=== PATIENT | female | born 1985 | race Caucasian/White ===

== ENCOUNTER 2024-11-25 23:27 | Observation (INO) | payer BC, SELFPAY ==
[2024-11-25 20:21] VITALS: BP 130/85
[2024-11-25 20:32] VITALS: BP 139/79
[2024-11-25] MEDS: NSS 1000 IV (21:00)
[2024-11-25] MEDS: DILAUDID 0.5 MG IV ×2 (21:00→23:51)
[2024-11-25 21:12] LABS: Hematocrit 31.9 % (37.0-47.0); Hemoglobin 11.5 g/dL (12.0-16.0); Mean Corp Hgb Conc. 36.1 g/dL (33.0-37.0); Mean Corpuscular Volume 94.1 fL (81.0-99.0); Nucleated Red Blood Cells % 0 %; Platelet Count 304 10^3/uL (130-400); Red Cell Dist. Width 13.1 % (11.5-14.5)
[2024-11-25 21:27] LABS: COVID-19 Antigen Negative (Negative)
--- NOTE | 2024-11-25 21:27 | ED.GENMED ---
History of Present Illness
General
Chief Complaint: Chest Pain
Source: patient
Exam Limitations: none
Time Seen by Provider: 11/25/24 20:27
History of Present Illness
History of Present Illness:
39-year-old female slight cough for 2 to 3 days. However in the last 20 hours patient has developed severe pleuritic left-sided chest pain. Mostly left lateral. Clearly worse with breathing. Also worse with lying down. Dry cough no sputum no
hemoptysis no fever.
Past History
Past History
ED Past Medical History: Other (Crohn's disease)
ED Past Surgical History: Appendectomy and Other (Bowel resections. [place] teeth)
Social History
Tobacco: Non-smoker
Alcohol: None
Drug: None
Living: with family
Review of Systems
Review of Systems
All Other Systems: Not applicable
Constitutional: Denies fever
ABD/GI: Denies abdominal pain
Phy Exam
Physical Exam
Physical Exam:
GENERAL: Alert and oriented. Nontoxic but appears moderately uncomfortable. Somewhat anxious
EYE: Orbits normal.
NECK: Supple, no significant adenopathy.
ENT: No drooling no stridor speech normal
CARDIAC: Tachycardic and regular no murmur
LUNGS: Clear breath sounds,normal
ABDOMEN: Soft, without focal tenderness or distention
NEUROLOGICAL: Alert and oriented , grossly non-focal
SKIN: Warm and dry, no rash or lesion, no discoloration, skin intact.
MUSCULOSKELETAL: No edema,no deformity.Good color
PSYCH: Normal and appropriate interaction. However anxious
Scores
Heart Score for Chest Pain Patients
STEMI patient?: No
History: Slightly or Non-Suspicious
ECG: Normal
Age: </= 45 years
Risk Factors: No Risk Factors
Troponin: </= Normal Limit
Heart Score for Chest Pain Patients: 0
Heart Score Risk: 2.5% MACE over next 6 weeks
Course
Orders/Labs/Results
Orders:
Orders
11/25/24 Dinner
Regular
11/25/24 20:19
Electrocardiogram (*1) Urgent
Reason for Study: Chest Pain
EKG- Treatment ONCE
11/25/24 20:33
IV Insert/Care/Rem.- Treatment PRN
0.9% Sodium Chloride 500 ml [Nss] 500 ml IV BOLUS
CXR Port [CR Chest Portable - 1 View] Urgent
Comment:
Reason For Exam: pleuritic left chest pain
Reason Study Needs to be Portable: Unable to Transport
11/25/24 20:34
Cardiac Monitoring- Treatment ONCE
11/25/24 20:40
0.9% Sodium Chloride 1000 ml [Nss] 1,000 ml IV BOLUS
HYDROmorphone [Dilaudid] 0.5 mg IV NOW STA
Test Result ONCE
11/25/24 20:42
CT Chest PE Study Urgent
Comment:
Reason For Exam: Left pleuritic chest pain
11/25/24 20:58
Basic Metabolic Panel Urgent
Beta Hcg Serum Qualitative Screen [HCG, Serum Qualitative Screen] Urgent
COVID-19 Antigen Urgent
Source: Nasal Swab
CRP [C-Reactive Protein] Urgent
Complete Blood Count/With Diff Urgent
ESR [Erythrocyte Sed Rate] Urgent
Troponin I Urgent
11/25/24 23:06
Azithromycin 500 mg/250 ml [Zithromax Infusion] 500 mg in 250 ml IV NOW
CefTRIAXone [Rocephin] 1,000 mg IV NOW STA
11/25/24 23:15
Admit/Transfer Patient As Directed
Co-Sign Provider:
Level of Care: Observation services
Assign to:: Medical/Surgical
Physician / Group: Jose Calloway
Diagnosis: pneumonia
PRN Pain Medication Management As Directed
May give lesser potent ordered pain med per pt: Yes
preference::
Protocol:: Medication orders for pain may be administered in a
manner that supports deferring to patient preference
when the pt is:
- Requesting an ordered lesser potent pain medication.
Least to most potent pain medications are defined
as: acetaminophen < NSAID < tramadol < opioids
(morphine, oxycodone, hydromorphone).
- Requesting a lesser dose of the same medication IF
ORDERED.
- Requesting a less intrusive route of administration
if both routes are prescribed by the provider (PO <
IV).
11/25/24 23:16
Code Status As Directed
Resuscitation Status: Full Code
11/25/24 23:30
Blood Culture Q30M
VINNIE Source: Blood/Venous
Specimen Description:
11/25/24 23:31
Blood Culture Q30M
VINNIE Source: Blood/Venous
Specimen Description:
11/25/24 23:46
Cyclobenzaprine HCl [Flexeril] 5 mg PO TID PRN
Lorazepam [Ativan] 0.5 mg PO DAILYPRN PRN anxiety
11/25/24 23:46
Respiratory Culture/Gram Stain Urgent
VINNIE Source: Sputum
Specimen Description:
Activity As Directed
Activity Level: Out of Bed-Early Mobility
Intake/ Output As Directed
Frequency: Per unit guidelines
Vital Signs As Directed
Frequency: Per unit guidelines
Weight As Directed
Frequency: Once
Comment: on admission
O2 Therapy [RESP] Routine
Titrate/Wean O2 to maintain O2 sat greater than (%): 93
Special Instructions: Wean as tolerated
Rx Incentive Spirometry [RESP] Routine
Frequency: q1h while awake
DX Deep Vein Thrombosis Video Routine
11/26/24 06:00
Complete Blood Count/No Diff IN AM
11/26/24 08:00
Loratadine [Claritin] 10 mg PO DAILY
Pantoprazole [Protonix] 40 mg PO BID
11/26/24 18:00
Enoxaparin Sodium [Lovenox] 40 mg SC QPM
11/26/24 22:00
Azithromycin 500 mg/250 ml [Zithromax Infusion] 500 mg in 250 ml IV Q24H
CefTRIAXone [Rocephin] 1,000 mg IV Q24H
Mercaptopurine [Purinethol] 50 mg PO HS
Abnormal Lab Results
11/25/24
20:58
RBC 3.39 L 10^6/uL
(4.20-5.40)
Hgb 11.5 L g/dL
(12.0-16.0)
Hct 31.9 L %
(37.0-47.0)
MCH 33.9 H pg
(27.0-31.0)
Neutrophils % 77.1 H %
(42.2-75.2)
Lymphocytes % 16.2 L %
(20.5-51.1)
ESR 59 H mm/hour
(0-20)
Carbon Dioxide 20 L mmol/L
(22-30)
BUN 5 L mg/dl
(7-17)
Creatinine 0.5 L mg/dL
(0.6-1.0)
C-Reactive Protein 54.20 H mg/L
(0.0-10.00)
11/25/24 20:58
11/25/24 20:58
Vital Signs
Initial and Last Documented VS:
Initial Vital Signs
Temp Pulse Resp BP Pulse Ox
98.6 F 129 15 130/85 100
11/25/24 20:21 11/25/24 20:21 11/25/24 20:21 11/25/24 20:21 11/25/24 20:21
Last Documented Vital Signs
Temp Pulse Resp BP Pulse Ox
98.1 F 110 17 108/62 97
11/25/24 23:45 11/25/24 23:45 11/25/24 23:45 11/25/24 23:00 11/25/24 23:45
MDM/Problems Addressed
Differential Diagnosis Includes:
Patient with slight cough recently pleuritic/musculoskeletal chest pain. No leg pain no leg swelling. Nontoxic but very uncomfortable. Differential would include pneumothorax. However breath sounds are equal and chest x-ray does not show
pneumothorax. Pulmonary emboli, pneumonia, pleurisy, pericarditis., Musculoskeletal. Workup in progress.
*Pulse Oximetry
SaO2: 97
Oxygen Mode of Delivery: Room air
Patient hypoxic: no
*EKG
Interpreted by ED Provider?: Yes
Interpretation: abnormal
Comparison EKG: no comparison EKG present
Heart Rate: 109
Rate: tachycardiac
Rhythm: sinus
Elmore: normal axis
Interval: normal interval
QRS Pattern: normal QRS
Ischemia: no ischemia
*Networking Technology Instructor Interpretation
Rate: normal
Interpretation: normal
Heart Rate: 120
Rhythm: sinus
*Critical Care Note
Total Time (30-74mins, 75-104mins- exclusive of procedures): Not Applicable
Update Note
Update Note:
Patient with pneumonia, secondary pleurisy. Remains tachycardic. Admission for pain management IV antibiotics. Immunocompromised
ED Attending Note
-
Portions of this chart may have been created with voice recognition software.� Occasional wrong word or��sound alike� substitutions may have occurred due to the inherent limitations of voice recognition software.
Discharge Plan
Departure
Patient Disposition: Admit
Date of Disposition: 11/25/24
Time of Disposition: 23:07
Presentation/result/management discussed w/ accepting MD/DO: Hospitalist
Discharge Problem:
Pneumonia/pleurisy, History of Crohn's disease
Interventions
Interventions:
*Risk Screen - Suicide Last Done: 11/25/24 20:21
*General Assessment Last Done: 11/25/24 20:21
*Neglect/Abuse Screening Last Done: 11/25/24 20:21
*ED- Fall Risk Assessment Last Done: 11/25/24 20:49
*ED COVID-19 Vaccine History Last Done: 11/25/24 20:49
ED- Cardiac Assessment Last Done: 11/25/24 20:50
[2024-11-25 21:37] LABS: HCG, Serum Qualitative Screen Negative; Troponin I < 0.012 ng/ml
[2024-11-25 21:41] LABS: Blood Urea Nitrogen 5 mg/dl (7-17); Calcium 9.7 mg/dl (8.4-10.2); Carbon Dioxide 20 mmol/L (22-30); Chloride 106 mmol/L (98-107); Glucose 99 mg/dl (70-99); Potassium 3.5 mmol/L (3.5-5.1); Sodium 139 mmol/L (135-145); eGFR > 60.00
[2024-11-25 21:44] LABS: C-Reactive Protein 54.20 mg/L (0.0-10.00)
[2024-11-25 21:45] VITALS: BP 126/64
[2024-11-25 21:57] VITALS: BMI 19.6
[2024-11-25 22:07] VITALS: BP 113/77
[2024-11-25 23:00] VITALS: BP 108/62
--- NOTE | 2024-11-25 23:30 | HPS.HSE ---
Family Physician
-
Family Physician: Reyes Arthur
Chief Complaint
-
Chest pain
History of Present Illness
Patient is a 39-year-old female with past medical history significant for Crohn's disease, GERD, status post multiple bowel surgeries who presents to the emergency department with chest pain.
Patient reported that approximately 5 days ago she developed some upper respiratory symptoms including mild sniffles and a nonproductive cough without chest congestion. She denies feeling short of breath. She denied having any fevers or chills.
She continued to have persistent upper respiratory exams up until last night when she developed she Left upper chest discomfort. She again had no fevers and shortness of breath or productive cough. She decided to take some Flexeril which helped
her sleep. When she arose this morning she still continued to have nonproductive cough and was able to continue activities up until this evening when she tried to lay down again and had severe chest pain and she was concerned about the possibility
of a blood clot. She denies any recent travels. She does cold months and has several children with upper respiratory infections at school. She otherwise has no other sick contacts. She denies any nausea or vomiting.
In the emergency department she is afebrile temp 98.6, blood pressure 108/60, pulse rate 120 and she is still satting 100% on room air. COVID test was negative. Her chest x-ray shows nodule or left upper lobe opacity. CT scan confirms a left
upper lobe pneumonia. There is no evidence of pulmonary embolism.
Medical History
Past Medical History
Past Medical History: Reports Other (Chron's disease)
Past Surgical History: Reports Bowel Resection (Small bowel resections x 7)
Social History
Tobacco: Non-smoker
Alcohol: Occasional
Drug: None
Personal:
Living: With Family
Employment: Employed
Family History
Family History: Not pertinent
Allergies / Home Medications
Allergies reflects when Allergies were last updated in [facility].
Home Medications with original date entered in [facility]
Allergy/Medication List:
Allergies
Allergy/AdvReac Type Severity Reaction Status Date / Time
morphine Allergy Unknown Verified 11/25/24 20:23
NSAIDS (Non-Steroidal Allergy Unknown Verified 11/25/24 20:23
Anti-Inflamma
Home Medications
lorazepam 0.5 mg tablet 0.5 mg PO DAILYPRN PRN anxiety 07/17/16
esomeprazole magnesium 20 mg capsule,delayed release (Nexium) 40 mg PO BID 05/04/17
loratadine 10 mg tablet 10 mg PO DAILY 05/04/17
mercaptopurine 50 mg tablet 50 mg PO HS 05/04/17
cyclobenzaprine 5 mg tablet 5 mg PO TID PRN muscle spasms 11/25/24
Review of Systems
-
Constitutional: Reports No Symptoms
EENT: Reports No Symptoms
Respiratory: Reports Cough
Cardiac: Reports Chest Pain
Abdomen/GI: Reports No Symptoms
: Reports No Symptoms
Musculoskeletal: Reports No Symptoms
Skin: Reports No Symptoms
Neurological: Reports No Symptoms
Endocrine: Reports No Symptoms
Hematologic/Lymphatic: Reports No Symptoms
Psych: Reports No Symptoms
Physical Exam
Vital Signs
Vital Signs
Temp Pulse Resp BP Pulse Ox
98.6 F 117 16 108/62 99
11/25/24 20:21 11/25/24 23:15 11/25/24 23:15 11/25/24 23:00 11/25/24 23:15
Physical Exam
General: Well Developed, Well Nourished and No Apparent Distress
HEENT: NormoCephalic, Moist mucous membranes and Atraumatic
Respiratory: Clear
Cardiac: S1/S2 and Regular Rhythm; No Murmur or Rub
GI: Soft, Non Tender, Non Distended and Normal Bowel Sounds; No Organomegaly
Rectal: Deferred by Provider
Musculoskeletal: No Clubbing, No Cyanosis and No Edema
Skin: No Rash
Neuro: AO x 3 and Nonfocal/grossly intact
Psych: Calm
Laboratory Results
-
11/25/24 20:58
11/25/24 20:58
Laboratory Results
Troponin I < 0.012 ng/ml 11/25/24 20:58
Data Reviewed
-
Diagnostic Radiology: Image Personally Visualized and interpreted and Report Reviewed by me
CT Scan: Report Reviewed by me
Lab Data: Labs Reviewed by me
Old Records: Reviewed
Impression/Plan
-
IMPRESSION:
49-year-old female with history of Crohn's disease on 6-mercaptopurine and monthly Stelara infusion presented to emergency department with left upper lobe chest discomfort
Of the left upper lobe pneumonia. She did have mild upper respiratory symptoms for a few days prior to onset of chest discomfort. She is not hypoxic, he has no leukocytosis and is afebrile. She is hemodynamically stable. Viral testing for COVID
was negative. She has no recent travels. She has no known sick contacts.
PLAN:
Left upper lobe pneumonia -atypical presentation but not completely unusual. Afebrile, no hypoxia, chest pain noted. Elevated ESR and CRP. No blood clot.
-Admit to [facility]
-No productive cough, no need for sputum sample at this time
- blood cultures
- IV ceftriaxone/azithromycin for now
-Nebs as needed shortness of breath
-Pain control as needed
-Check pneumococcal urinary antigen
- f/u imaging after resolution
Crohns - Elevated inflammatory markers but no GI symptoms.
- continue merecaptopurine
- ppi bid
DVT PPX - lovenox sq
Code status - Full code
[2024-11-25] MEDS: ROCEPHIN 1000 MG IV (23:31)
[2024-11-25] MEDS: ZITHROMAX INFUSION 250 IV (23:32)
[2024-11-26 00:58] VITALS: BP 103/69
[2024-11-26 00:59] VITALS: BMI 18.7
--- NOTE | 2024-11-26 01:44 | PTCARENOTE ---
Receive pt from ER. Pt alert oriented X3, calm, in no distress. Pt assist X1 to her bed, steady gait. Pt reports dry cough and upper chest pain (5/10). Pt oriented to the room, call evans within reach. VSS (T=98.3, IM=724, RR=18, RJ=231/69, IpS5=262%
on RA). Will continue to monitor the pt.
[2024-11-26] MEDS: DILAUDID 0.5 MG IV ×4 (04:37→22:03)
[2024-11-26 07:00] VITALS: BP 98/63
[2024-11-26] MEDS: CLARITIN 10 MG PO (08:04)
[2024-11-26 08:10] LABS: Hematocrit 31.1 % (37.0-47.0); Hemoglobin 10.9 g/dL (12.0-16.0); Mean Corp Hgb Conc. 35.0 g/dL (33.0-37.0); Mean Corpuscular Volume 99.4 fL (81.0-99.0); Platelet Count 279 10^3/uL (130-400); Red Cell Dist. Width 13.2 % (11.5-14.5)
--- NOTE | 2024-11-26 09:55 | W.PN.HOSP.TC ---
Today's Communication/Plan
-
see A/P
Assessment / Plan
Assessment / Plan
HPI: 39-year-old female with history of Crohn's disease on 6-mercaptopurine and monthly Stelara infusion presented to emergency department with left upper lobe chest pain. She did have mild upper respiratory symptoms for a few days prior to onset of
chest discomfort.
Her CT imaging showed Left upper lobe pneumonia.
She was not hypoxic, has no leukocytosis and was afebrile on admission. Viral testing for COVID was negative. She has no recent travels. She has no known sick contacts.
A/P:
# Left upper lobe pneumonia/ CAP
Follow blood cultures
Follow Legionella and Strep pneumococcal urinary antigen
Check MRSA screen
Cont IV ceftriaxone/azithromycin for now
Nebs as needed for shortness of breath
Pain control as needed
Can check follow up CXR in 4-6 weeks with PCP
# Crohns disease
Elevated inflammatory markers but no GI symptoms.
Continue merecaptopurine
ppi bid
DVT PPX - lovenox sq
Code status - Full code
DW RN
total time 51 min
Anticipated Discharge: 24 - 48 hours
Subjective/Interval History
-
Date of Service: November 26, 2024
Objective Data
-
Labs:
Laboratory Results
11/26/24
07:09
WBC 7.2
Hgb 10.9 L
Hct 31.1 L
Plt Count 279
Vital Signs:
Vital Signs
Temp Pulse Resp BP Pulse Ox
36.8 C 89 12 98/63 100
11/26/24 07:00 11/26/24 07:00 11/26/24 07:00 11/26/24 07:00 11/26/24 07:00
Review of Systems
-
History Source: Patient
Respiratory: Reports Pleurisy (L sided)
Physical Exam
-
General: Well Developed, Well Nourished, No Apparent Distress, Comfortable and Conversant; Negative Respiratory Distress
HEENT: Normocephalic, Atraumatic, Nose Appears Normal and Ears Appear Normal; Negative Oxygen
Respiratory: Clear to Auscultation, Crackles (L lung) and Non Labored Respirations; Negative Accessory Resp Muscle Use
Cardiac: Regular Rhythm and S1/S2
GI: Soft, Nontender, Nondistended and Normal Bowel Sounds
Skin: Warm and Dry
Neuro: Awake, Alert, Oriented and AO x 3
Psych: Calm and Intact Judgement/Insight
Data Reviewed
-
Diagnostic Radiology: Report Reviewed by me
CT Scan: Report Reviewed by me
Labs: Labs Reviewed by me
[2024-11-26] MEDS: KCL 40 MEQ PO (10:47)
--- NOTE | 2024-11-26 12:17 | CM ---
CM met with pt bedside
Pt resides with her spouse, 2 dtrs (3 & 8 y/o) and her parents in a 2SH with 2STE, 6+landing=6 steps to 2nd floor
Pt is not a caregiver for her parents
Pt is independent with her ADLs, denies use of DMEs
Works as a school nurse for [employer]
Denies financial insecurities, has Rx coverage through insurance plan
PCP- Kyle Arthur
Rx- [facility]
Pt is OBS- OBS notice provide and verbally reviewed
Discharge Disposition- anticipate home no needs
[2024-11-26 15:00] VITALS: BP 95/60
[2024-11-26] MEDS: PURINETHOL 50 MG PO (21:56)
[2024-11-26] MEDS: STERILE WATER FOR INJECTION 10 ML IV (21:57)
[2024-11-26] MEDS: ZITHROMAX INFUSION 250 IV (21:57)
[2024-11-26] MEDS: ROCEPHIN 1000 MG IV (21:57)
[2024-11-26 23:25] VITALS: BP 105/70
[2024-11-26] MEDS: ATIVAN 0.5 MG PO (23:46)
[2024-11-27] MEDS: DILAUDID 0.5 MG IV ×2 (03:31→09:47)
[2024-11-27 07:00] VITALS: BP 99/66
[2024-11-27 07:28] LABS: Hematocrit 31.0 % (37.0-47.0); Hemoglobin 10.6 g/dL (12.0-16.0); Mean Corp Hgb Conc. 34.2 g/dL (33.0-37.0); Mean Corpuscular Volume 98.1 fL (81.0-99.0); Platelet Count 286 10^3/uL (130-400); Red Cell Dist. Width 13.2 % (11.5-14.5)
[2024-11-27 07:40] LABS: Blood Urea Nitrogen 6 mg/dl (7-17); Calcium 9.0 mg/dl (8.4-10.2); Carbon Dioxide 26 mmol/L (22-30); Chloride 106 mmol/L (98-107); Estimated Creatinine Clearance 96 ml/min; Glucose 95 mg/dl (70-99); Magnesium 1.8 mg/dl (1.6-2.3); Potassium 4.7 mmol/L (3.5-5.1); Sodium 138 mmol/L (135-145); eGFR > 60.00
[2024-11-27] MEDS: CLARITIN 10 MG PO (08:14)
--- NOTE | 2024-11-27 10:37 | W.PN.HOSP.TC ---
Today's Communication/Plan
-
Pt requesting for discharge, which I do not object
Assessment / Plan
Assessment / Plan
HPI: 39-year-old female with history of Crohn's disease on 6-mercaptopurine and monthly Stelara infusion presented to emergency department with left upper lobe chest pain. She did have mild upper respiratory symptoms for a few days prior to onset of
chest discomfort.
Her CT imaging showed Left upper lobe pneumonia.
She was not hypoxic, has no leukocytosis and was afebrile on admission. Viral testing for COVID was negative. She has no recent travels. She has no known sick contacts.
A/P:
# Left upper lobe pneumonia/ CAP
blood cultures so far negative, Legionella and Strep pneumococcal urinary antigens are negative
pending MRSA screen
IV ceftriaxone/azithromycin -> Cefdinir and doxycycline for 5 more days
Nebs as needed for shortness of breath
Pain control as needed
Can check follow up CXR in 4-6 weeks with PCP
# Crohns disease
Elevated inflammatory markers but no GI symptoms.
Continue merecaptopurine
ppi bid
DVT PPX - lovenox sq
Code status - Full code
Anticipated Discharge: Today
Subjective/Interval History
-
Date of Service: November 27, 2024
Objective Data
-
Labs:
Laboratory Results
11/27/24
06:45
WBC 5.7
Hgb 10.6 L
Hct 31.0 L
Plt Count 286
Sodium 138
Potassium 4.7 D
Chloride 106
Carbon Dioxide 26
BUN 6 L
Creatinine 0.5 L
Glucose 95
Calcium 9.0
Vital Signs:
Vital Signs
Temp Pulse Resp BP Pulse Ox
37.1 C 92 16 99/66 99
11/27/24 07:00 11/27/24 07:00 11/27/24 07:00 11/27/24 07:00 11/27/24 08:10
I&O
11/26/24 11/27/24 11/28/24
06:59 06:59 06:59
Intake Total 480 / 480
Balance 480 / 480
Review of Systems
-
History Source: Patient
All other systems: Reviewed and negative
Physical Exam
-
General: Well Developed, Well Nourished, No Apparent Distress, Comfortable and Conversant; Negative Respiratory Distress
HEENT: Normocephalic, Atraumatic, Nose Appears Normal and Ears Appear Normal; Negative Oxygen
Respiratory: Clear to Auscultation, Crackles (L lung) and Non Labored Respirations; Negative Accessory Resp Muscle Use
Cardiac: Regular Rhythm and S1/S2
GI: Soft, Nontender, Nondistended and Normal Bowel Sounds
Skin: Warm and Dry
Neuro: Awake, Alert, Oriented and AO x 3
Psych: Calm and Intact Judgement/Insight
Data Reviewed
-
Diagnostic Radiology: Report Reviewed by me
CT Scan: Report Reviewed by me
Labs: Labs Reviewed by me
--- NOTE | 2024-11-27 11:55 | CM ---
Chart reviewed. Met with pt bedside. pulse O2 at 99% on room air. ABXs changed to PO at discharge.
Plan: Home, no needs
--- NOTE | 2024-11-27 14:00 | W.DCSUMMARY ---
Discharge Summary
Discharge Data
Date of Admission: 11/25/24
Date of Discharge: 11/27/24
Total time spent discharging patient (in min): 40
-
Pending Results: No
Hospital Course
Principal Diagnosis:
Left upper lobe pneumonia/community-acquired pneumonia (CAP)
Chronic Diagnoses:�
Crohns disease, on mercaptopurine and monthly Stelara infusion
Consultations:�
None
Procedures:�
None
Clinical course:�
This is a 39-year-old female with past medical history as stated above, who presented with left upper lobe pleurisy/chest pain. She also noted mild upper respiratory symptoms for a few days prior to onset of the pleurisy.
Her CT imaging showed Left upper lobe pneumonia.
Problem 1:
Left upper lobe pneumonia/ CAP.
Her blood cultures, urine Legionella and Strep pneumococcal antigens were negative.
MRSA screen was still pending at the time of her discharge but irrespective she was sent home with doxycycline.
She received IV ceftriaxone and azithromycin while in the hospital, and was discharged with PO cefdinir and doxycycline for 5 more days.
She has been informed to check follow up CXR in 4-6 weeks with her PCP.
As for the rest of her medical problems, they were stable during her hospital stay.
Discharge Plan
-
Patient Disposition: Home (Routine Discharge)
Discharge Diagnosis/Procedures: Left upper lobe pneumonia/ CAP
Condition: Good
Diet: As tolerated
Activity: As tolerated
Driving Restrictions: As prior to admission
Others Tests: CXR in 4-6 weeks with your PCP
Stand Alone Forms: Return to Work
Referrals:
Reyes Arthur MD [Family Provider, Family Practice] - in less than 1 week
Additional Discharge Medication Instructions: Continue Cefdinir and doxycycline for 5 more days. Avoid sun exposure and dairy product (milk, cheese etc.) while on doxycycline.
Prescriptions:
New
cefdinir 300 mg capsule
300 mg PO Q12H 5 Days Qty: 10 0RF
doxycycline hyclate 100 mg capsule
100 mg PO BID 5 Days Qty: 10 0RF
tramadol 25 mg tablet
25 mg PO Q8H PRN (Reason: Pain) Qty: 5 0RF
(DME) chest X Ray
See Rx Instructions .Route .MEDSUPPLY Qty: 1 0RF
Rx Instructions:
in 4-6 week, 12/25 to 01/15/2025, with your PCP
# community acquired pneumonia
Continued
lorazepam 0.5 MG tablet
0.5 mg PO DAILYPRN PRN (Reason: anxiety)
mercaptopurine 50 MG tablet
50 mg PO HS
loratadine 10 MG tablet
10 mg PO DAILY
esomeprazole magnesium [Nexium] 20 MG capsule,delayed release(DR/EC)
40 mg PO BID
cyclobenzaprine 5 mg Tablet
5 mg PO TID PRN (Reason: muscle spasms)
Discharge Orders:
Discharge Patient (As Directed); Ordered 11/27/24
Ordered By: Felecia Kent
Discharge Date and Time
Discharge Date/Time: 11/27/24 12:03
Print Language: BURKINAN
== END 2024-11-27 12:03 | disposition home or self-care (01) ==
LOC: 4 EAST ACU 23:27
PROVIDERS: Nurse Practitioner Family; ADMITTING PHYSICIAN Internal Medicine; ATTENDING PHYSICIAN Internal Medicine; EMERGENCY PHYSICIAN Emergency Medicine; FAMILY PHYSICIAN Family Medicine
DX: J18.9 Pneumonia, unspecified organism (principal); K50.90 Crohn's disease, unspecified, without complications; D84.9 Immunodeficiency, unspecified; K21.9 Gastro-esophageal reflux disease without esophagitis; Z11.52 Encounter for screening for COVID-19; Z79.899 Other long term (current) drug therapy
CPT/HCPCS: 71045; 71275; 80048; 83735; 84484; 84703; 85025; 85027; 85652; 86140; 87040; 87070; 87449; 87811; 87899; 93005; 96361; 96374; 99285; Q9967